=== PATIENT | male | born 1995 | race African-American/Black ===

== ENCOUNTER 2017-09-22 05:00 | Emergency (ER) | payer SELFPAY ==
[~2017-09-22] VITALS: Ht 188 cm; Wt 90.5 kg
[~2017-09-22 05:00] MED LIST: ALBU17I INH; MEDR4PAK3 PO; VENTAER INH
[2017-09-22 05:03] VITALS: BP 140/83; PULSE 120; RESP 16; TEMP 101.2; O2SAT 95
[2017-09-22] MEDS ORDERED: OSELTAMIVIR PHOSPHATE 75 MG CAP PO ONE (05:15)
[2017-09-22] MEDS ORDERED: IBUPROFEN 600 MG TAB PO ONE (05:15)
[2017-09-22] MEDS ORDERED: ALBUTEROL SULFATE 90 MCG/ACT HFA 8 GM INHALER INH ONE (05:15)
[2017-09-22] MEDS ORDERED: ALBU6.7H INH (05:18)
[2017-09-22] MEDS ORDERED: OSEL75 PO (05:18)
--- NOTE | 2017-09-22 05:18 | PD ---
HPI Chief Complaint: Respiratory Symptoms Time Seen by Provider: 05:14 Travel History International Travel<30 days: No Contact w/Intl Traveler<30days: No Traveled to known affect area: No History of Present Illness HPI 22-year-old male arrives with wheezing which he believes are due to asthma. He has also had a fever muscle aches and pains occasional cough and rhinorrhea for about half a day or so. Last night he had difficulty sleeping due to wheezing. He expresses asthma sufficiently rarely do not carry an albuterol inhaler however notes typically the symptoms resolved with albuterol inhaler. Severity moderate. Onset gradual. PFSH Past Medical History Asthma: Yes Respiratory: Yes (Asthma) Tetanus Vaccination: > 5 Years Influenza Vaccination: No Past Surgical History Surgical History: No Previous Surgery Social History Alcohol Use: No Tobacco Use: No Substance Use: No Allergies-Medications (Allergen,Severity, Reaction): Coded Allergies: No Known Allergies (Unverified , 03/23/13) Reported Meds & Prescriptions Reported Meds & Active Scripts Active No Active Prescriptions or Reported Medications Review of Systems Except as stated in HPI: all other systems reviewed are Neg Physical Exam Narrative GENERAL: 22 yo M, NAD, pleasant SKIN: Warm and dry. HEAD: Atraumatic. Normocephalic. EYES: Pupils equal and round. No scleral icterus. No injection or drainage. ENT: No nasal bleeding or discharge. Mucous membranes pink and moist. NECK: Trachea midline. No JVD. CARDIOVASCULAR: Tachycardia. Regular rhythm. RESPIRATORY: Wheezing present bilaterally. Minimal tachypnea. GASTROINTESTINAL: Abdomen soft, non-tender, nondistended. Hepatic and splenic margins not palpable. MUSCULOSKELETAL: Extremities without clubbing, cyanosis, or edema. No obvious deformities. NEUROLOGICAL: Awake and alert. No obvious cranial nerve deficits. Motor grossly within normal limits. Five out of 5 muscle strength in the arms and legs. Normal speech. PSYCHIATRIC: Appropriate mood and affect; insight and judgment normal. Data Data Last Documented VS Vital Signs Date Time Temp Pulse Resp B/P (MAP) Pulse Ox O2 Delivery O2 Flow Rate FiO2 09/22/17 05:03 101.2 120 16 140/83 (102) 95 Orders Orders Ibuprofen (Motrin) (09/22/17 05:15) Albuterol Hfa Inh (Proair Hfa Inh) (09/22/17 05:15) Albuterol Neb (Albuterol Neb) (09/22/17 05:15) Oseltamivir (Tamiflu) (09/22/17 05:15) Ed Discharge Order (09/22/17 05:15) [facility] Medical Decision Making Medical Screen Exam Complete: Yes Emergency Medical Condition: Yes Medical Record Reviewed: Yes Differential Diagnosis influenza, viral syndrome, pna, asthma Narrative Course Tachycardia fever returned this 22-year-old male is considered due to the influenza and we'll provide Tamiflu as well as an albuterol inhaler prescription. He received albuterol here with good effect. Diagnosis Primary Impression: Influenza Additional Impression: Wheezing Referrals: Primary Care Physician call for appointment Med/Other Pt SpecificInfo: Prescription(s) given Scripts Albuterol 6.7 GM Inh (Proventil Hfa 6.7 GM Inh) 90 Mcg/Act Aer 2 PUFF INH Q6H Y for WHEEZING, #1 INHALER 0 Refills Prov: Margarito Haile MD 09/22/17 Oseltamivir (Tamiflu) 75 Mg Cap 75 MG PO BID for Mgmt Viral Infection for 5 Days, #10 CAP 0 Refills Prov: Margarito Haile MD 09/22/17 Disposition: 01 DISCHARGE HOME Condition: Stable Margarito Haile MD Sep 22, 2017 05:18
[2017-09-22] MEDS: RESP: ALBUTEROL 2.5 MG/3 ML NEB (SCH) INH (05:25)
== END 2017-09-22 06:00 | disposition home or self-care (01) ==
LOC: NEPC 05:00
DX: J11.1 Influenza due to unidentified influenza virus with other respiratory manifestations (principal)
CPT/HCPCS: 94640; 94664; 99284; J7613